=== PATIENT | male | born 2005 | race African-American/Black ===

== ENCOUNTER 2023-08-28 12:36 | Emergency (ER) | payer MEDICAID ==
[~2023-08-28] VITALS: Ht 182.9 cm; Wt 68.0 kg
[2023-08-28 13:11] VITALS: BP_SYST 120; PULSE 67; RESP 16; TEMP 97.7; O2SAT 99
[2023-08-28 15:52] VITALS: BP_SYST 133; PULSE 59; RESP 17; TEMP 97.7; O2SAT 100
== END 2023-08-28 15:51 | disposition home or self-care (01) ==
LOC: SED 12:36
DX: S62.396A Other fracture of fifth metacarpal bone, right hand, initial encounter for closed fracture (principal); Z79.899 Other long term (current) drug therapy; W22.09XA Striking against other stationary object, initial encounter; Y93.89 Activity, other specified; Y92.89 Other specified places as the place of occurrence of the external cause; Y99.8 Other external cause status
CPT/HCPCS: 99283

== ENCOUNTER 2024-03-11 20:21 | Emergency (ER) | payer MEDICAID ==
[~2024-03-11] VITALS: Ht 182.9 cm; Wt 67.1 kg
[2024-03-11 20:34] VITALS: BP_SYST 98; PULSE 63; RESP 16; TEMP 98.3; O2SAT 100
[2024-03-11] MEDS ORDERED: IBUP-1969 PO (21:47)
[2024-03-11] MEDS: KETOROLAC TROMETHAMINE 60 MG/2 ML VIAL IM ONE (21:50)
[2024-03-11 22:20] VITALS: BP_SYST 98; PULSE 63; RESP 16; TEMP 98.3; O2SAT 100
== END 2024-03-11 22:20 | disposition home or self-care (01) ==
LOC: SED 20:21
DX: S93.401A Sprain of unspecified ligament of right ankle, initial encounter (principal); S90.31XA Contusion of right foot, initial encounter; Z79.899 Other long term (current) drug therapy; W50.0XXA Accidental hit or strike by another person, initial encounter; Y93.72 Activity, wrestling; Y92.89 Other specified places as the place of occurrence of the external cause; Y99.8 Other external cause status
CPT/HCPCS: 99284; 73610; 73630; 96372; J1885